=== PATIENT | male | born 1990 | race Caucasian/White ===

== ENCOUNTER 2017-07-02 19:57 | Emergency (ER) | payer OTHER ==
[2017-07-02] MEDS ORDERED: XYLOCAINE 1% HCL 20 ML MDV ONE (22:44)
--- NOTE | 2017-07-02 23:22 | ERPHSYRPT ---
- History of Present Illness Time Seen by Provider: 07/02/17 22:00 Source: patient Exam Limitations: clinical condition Patient Subjective Stated Complaint: Dog attacked dad and pt jumped in and grabbed the dog off dad. Dog managed to bite pt in several places on right cheek. Triage Nursing Assessment: A&O x3, gait stable, lungs clear, skin clear, 2 lacerations and 1 puncture to right cheek. Doesn't appear to be in distress. Physician History: PATIENT SUSTAINED LACERATIONS FROM FAMILY DOG TO THE RIGHT SIDE OF HIS FACE AFTER THE DOG ATTACKED HIS FATHER. Timing/Duration: abrupt onset Severity: mild ENT Location: facial Prearrival Treatment: no prearrival treatment Modifying Factors: Improves With: nothing Associated Symptoms: other (FACIAL LACERATIONS, PAIN, SWELLING) Allergies/Adverse Reactions: No Known Allergies Allergy (Unknown, Verified 07/02/17 21:53) Hx Tetanus, Diphtheria Vaccination/Date Given: No Immunizations Up to Date: Yes - Review of Systems Eyes: No Symptoms, Other (RIGHT CHEEK SWELLING, LACERATION) Neurological: No Dizziness, No Focal Weakness, No Sensory Changes - Past Medical History Pertinent Past Medical History: No Neurological History: No Pertinent History ENT History: No Pertinent History Cardiac History: No Pertinent History Respiratory History: No Pertinent History Endocrine Medical History: No Pertinent History Musculoskeletal History: No Pertinent History GI Medical History: No Pertinent History History: No Pertinent History Psycho-Social History: No Pertinent History Male Reproductive Disorders: No Pertinent History - Past Surgical History Past Surgical History: Yes Neuro Surgical History: No Pertinent History Cardiac: No Pertinent History Respiratory: No Pertinent History Gastrointestinal: No Pertinent History Genitourinary: No Pertinent History Musculoskeletal: No Pertinent History Male Surgical History: No Pertinent History - Social History Smoking Status: Never smoker Exposure to second hand smoke: Yes Drug Use: none Patient Lives Alone: No - Nursing Vital Signs Nursing Vital Signs: Initial Vital Signs Temperature 98.3 F 07/02/17 21:36 Pulse Rate 79 07/02/17 21:36 Respiratory Rate 14 07/02/17 21:36 Blood Pressure 159/101 07/02/17 21:36 O2 Sat by Pulse Oximetry 99 07/02/17 21:36 Pain Scale Pain Intensity 0 - Physical Exam General Appearance: no apparent distress, alert Eye Exam: right eye: other (RIGHT FACIAL LACERATIONS, 7MM LACERATION RIGHT LOWER MID EYELID, RIGHT MID CHEEK LACERATION 1.8CM, AND A 5MM LACERATION OVER ANGLE OF MANDIBLE, WITHOUT EVIDENCE OF FOREIGN BODIES), bilateral eye: normal inspection, PERRL Nasal Exam: normal inspection Cardiovascular/Respiratory Exam: normal breath sounds, heart sounds normal Neurologic Exam: alert, oriented x 3, cooperative SpO2 Interpretation: normal SpO2: 99 Oxygen Delivery: Room Air Procedures - Laceration/Wound Repair Right Face Wound Location: Right, face Wound Length (cm): 2.9 Wound's Depth, Shape: superficial, linear Wound Explored: clean Irrigated: Yes Hibiclens Prep: Yes Anesthesia: local, 2% Lidocaine Volume Anesthetic (ccs): 3 Wound Repaired With: sutures Suture Size/Type: 5-0 Number of Sutures: 9 Sterile Dressing Applied?: No Ordered Tests: Medication Summary Discontinued Medications Generic Name Dose Route Start Last Admin Trade Name Freq PRN Reason Stop Dose Admin Lidocaine HCl Confirm 07/02/17 22:44 Xylocaine 1% Hcl 20 Ml Mdv Administered 07/02/17 22:45 Dose 1 ml .ROUTE .[place] ONE - Progress Progress Note: 07/02/17 23:31 ADMINISTERED TETNUS T-DAY 0.5MG IM - Departure Time of Disposition: 23:30 Departure Disposition: Home Clinical Impression: FACIAL LACERATIONS 2ND DOG BITE Condition: Stable Critical Care Time: No Referrals: DOCTOR,NO FAMILY [Primary Care Provider] - Additional Instructions: APPLY ICE OVER CHEEK SWELLING EVERY 4 HOURS, 30 MINUTES FOR 48 HOURS, ANTIBIOTIC AUGMENTIN SUSPENSION 400MG/5ML TWICE DAILY FOR 10 DAYS. WATCH FOR SIGNS OF INFECTION, REDNESS, SWELLING OR DRAINAGE. TYLENOL EVERY 4 HOURS FOR PAIN Prescriptions: Amoxicillin/Potassium Clav [Augmentin 400-57 mg/5 ml] 400 mg PO BID #100 ml
[2017-07-02] MEDS ORDERED: Adacel Vial IM ONE ×2 (23:31→23:32)
[2017-07-02 23:53] VITALS: BP 133/74; PULSE 80; O2SAT 100
== END 2017-07-02 23:53 | disposition home or self-care (01) ==
LOC: ED 19:57
PROC: 0HQ1XZZ Repair Face Skin, External Approach (ICD-10-PCS; principal; 2017-07-02)
DX: S01.459A Open bite of unspecified cheek and temporomandibular area, initial encounter (principal); S01.81XA Laceration without foreign body of other part of head, initial encounter; W54.0XXA Bitten by dog, initial encounter
CPT/HCPCS: 12013; 90471; 90715; 99283